=== PATIENT | male | born 1965 | race Caucasian/White ===

== ENCOUNTER → 2017-11-05 | Outpatient (REF) | payer BC, OTHER ==
[2017-11-08 00:07] LABS: TESTOSTERONE FREE (DIRECT) 4.5 pg/mL (7.2-24.0)
== END ==
LOC: M LAB REF 16:43
DX: F52.21 Male erectile disorder (principal)
CPT/HCPCS: 84403

== ENCOUNTER → 2018-02-06 | Outpatient (REF) | payer OTHER ==
[2018-02-06 18:05] LABS: TESTOSTERONE 186 NG/DL (241-827)
== END ==
LOC: M LAB REF 17:11
DX: F52.21 Male erectile disorder (principal)

== ENCOUNTER → 2018-10-07 | Outpatient (REF) | payer OTHER | LOC: M LAB REF 12:30 | PROVIDERS: ATTEND Nurse Practitioner Adult Health | DX: F52.21 Male erectile disorder (principal); E29.1 Testicular hypofunction ==

== ENCOUNTER → 2018-11-13 | Outpatient (REF) | payer OTHER ==
[2018-11-17 00:06] LABS: Lyme Disease IgG/IgM Antibodie <0.91 ISR (0.00-0.90); Lyme Disease IgM Ab Quantitati <0.80 index (0.00-0.79)
== END ==
LOC: M LAB REF 16:34
PROVIDERS: ATTEND Nurse Practitioner Family
DX: Z11.59 Encounter for screening for other viral diseases (principal)

== ENCOUNTER → 2022-07-23 | Outpatient (CLI) | payer BC | LOC: M WUC 13:05 | PROVIDERS: ATTEND Nurse Practitioner Adult Health | DX: Z13.21 Encounter for screening for nutritional disorder (principal) ==

== ENCOUNTER → 2023-04-15 | Outpatient (CLI) | payer BC | LOC: M WUC 11:41 | PROVIDERS: ATTEND Nurse Practitioner Adult Health | DX: R07.81 Pleurodynia (principal) ==

== ENCOUNTER → 2023-08-19 | Outpatient (CLI) | payer BC | LOC: M WUC 11:54 | PROVIDERS: ATTEND Nurse Practitioner Adult Health | DX: S22.43XD Multiple fractures of ribs, bilateral, subsequent encounter for fracture with routine healing (principal); R07.82 Intercostal pain; Y93.9 Activity, unspecified; Y92.9 Unspecified place or not applicable ==

== ENCOUNTER → 2023-08-19 | Outpatient (REF) | payer BC ==
[2023-08-19 18:27] LABS: AMYLASE 94 U/L (30-118)
[2023-08-19 18:28] LABS: LIPASE 64 U/L (12-53)
== END ==
LOC: M LAB REF 16:34
PROVIDERS: ATTEND Nurse Practitioner Adult Health
DX: R10.11 Right upper quadrant pain (principal)